=== PATIENT | female | born 1995 | race Caucasian/White ===

== ENCOUNTER 2016-10-14 15:29 | Inpatient (IN) | payer OTHER, MEDICAID ==
[~2016-10-14] VITALS: Ht 144.8 cm; Wt 59.0 kg
[2016-10-14] MEDS ORDERED: OXYTOCIN/NORMAL SALINE 1,000 ML IV SCH (16:23)
[2016-10-14] MEDS ORDERED: LR 1,000 ML IV SCH (16:23)
[2016-10-14] MEDS ORDERED: AMPICILLIN SODIUM 2 GM in NS 100 ML IV ONE (16:30)
[2016-10-14] MEDS ORDERED: NALBUPHINE HCL 10 MG/ML AMP IVP PRN (16:30)
[2016-10-14] MEDS ORDERED: NALBUPHINE HCL 10 MG/ML AMP IM PRN (16:30)
[2016-10-14] MEDS ORDERED: AMPICILLIN SODIUM 2 GM VIAL ONE (16:42)
[2016-10-14 16:52] LABS: BASOPHILS # (AUTO) 0.1 K/uL (0.0-0.2); BASOPHILS % (AUTO) 0.6 % (0.0-2.0); EOSINOPHILS # (AUTO) 0.1 K/uL (0.0-0.4); EOSINOPHILS % (AUTO) 0.6 % (0.0-4.0); HEMATOCRIT 35.4 % (36-48); HEMOGLOBIN 11.7 g/dL (12.0-16.0); LYMPHOCYTES # (AUTO) 1.5 K/uL (1.0-5.5); LYMPHOCYTES % (AUTO) 15.6 % (20.5-51.5); MEAN CORPUSCULAR HEMOGLOBIN 28 pg (27-31); MEAN CORPUSCULAR HGB CONC 33 % (32-36); MEAN CORPUSCULAR VOLUME 84 fL (79.0-98.0); MONOCYTES # (AUTO) 0.8 K/uL (0.0-1.0); MONOCYTES % (AUTO) 8.7 % (1.7-9.3); NEUTROPHILS # (AUTO) 6.8 K/uL (1.8-7.7); NEUTROPHILS % (AUTO) 74.5 % (40.0-70.0); PLATELET COUNT (AUTO) 158 K/uL (130-430); RED CELL DISTRIBUTION WIDTH 13.5 % (9.0-15.0); WHITE BLOOD COUNT (AUTO) 9.3 K/uL (4.8-10.8)
[2016-10-14] MEDS ORDERED: fentaNYL CITRATE/PF 100 MCG/2 ML AMP ONE (17:21)
[2016-10-14] MEDS ORDERED: FENT2mCg/mL-ROPIVA0.2%/NS EPID 150 ML EP ONE (17:21)
[2016-10-14 17:53] VITALS: BP_SYST 124
[2016-10-14] MEDS ORDERED: LR 500 ML IV ONE (18:16)
[2016-10-14] MEDS ORDERED: fentaNYL CITRATE/PF 100 MCG/2 ML AMP EP ONE (18:30)
[2016-10-14] MEDS ORDERED: ePHEDrine sulfate 50 MG/ML VIAL IVP PRN (18:30)
[2016-10-14] MEDS ORDERED: FENT2mCg/mL-ROPIVA0.2%/NS EPID 150 ML EP SCH (18:30)
[2016-10-14] MEDS ORDERED: METHYLERGONOVINE MALEATE 0.2 MG/ML AMP ONE (18:40)
[2016-10-14] MEDS ORDERED: LANOLIN 7 GM OINT. TP PRN (18:45)
[2016-10-14] MEDS ORDERED: METHYLERGONOVINE MALEATE 0.2 MG/ML AMP IM ONE (18:45)
[2016-10-14] MEDS ORDERED: SENNOSIDES/DOCUSATE SODIUM 1 TAB TABLET(SENOKOT-S) PO PRN (18:45)
[2016-10-14] MEDS ORDERED: ANUSOL 1 EA SUPP.RECT (PREPARATION H) RC PRN (18:45)
[2016-10-14] MEDS ORDERED: HYDROcodone/ACETAMIN 5-325 MG TAB (NORCO/ VICODIN) PO PRN (18:45)
[2016-10-14] MEDS ORDERED: METHYLERGONOVINE MALEATE 0.2 MG TABLET PO PRN (18:45)
[2016-10-14] MEDS ORDERED: MEASLES,MUMPS&RUBELLA VACC/PF 12500 UNIT/0.5 ML VIAL SUBQ PRN (18:45)
[2016-10-14] MEDS ORDERED: OXYTOCIN 10 UNIT/ML VIAL IM ONE (18:45)
[2016-10-14] MEDS ORDERED: HYDROCORTISONE 0.5%, 28.35 GM TOPICAL CREAM TP PRN (18:45)
[2016-10-14] MEDS ORDERED: GLYCERIN/WITCH HAZEL (TUCKS PADS) TP PRN (18:45)
[2016-10-14] MEDS ORDERED: DERMOPLAST SPRAY TP PRN (18:45)
[2016-10-14] MEDS ORDERED: RHO(D) IMMUNE GLOBULIN/MALTOSE 1500 UNITS/1.3 ML (WINHRO) IM PRN (18:45)
[2016-10-14] MEDS ORDERED: OXYCODONE/ACETAMINOPHEN 5-325 TABLET PO PRN ×2 (18:45)
[2016-10-14] MEDS ORDERED: DOCUSATE SODIUM 100 MG CAPSULE PO PRN (18:45)
[2016-10-14] MEDS ORDERED: OXYTOCIN 10 UNIT/ML VIAL ONE (18:47)
[2016-10-14] MEDS ORDERED: TEMAZEPAM 15 MG CAPSULE PO PRN (21:00)
[2016-10-15] MEDS: IBUPROFEN 600 MG TABLET PO SCH ×5 (00:06→23:10)
[2016-10-15 06:21] LABS: BASOPHILS % (AUTO) 0.3 % (0.0-2.0); EOSINOPHILS # (AUTO) 0.1 K/uL (0.0-0.4); EOSINOPHILS % (AUTO) 0.5 % (0.0-4.0); HEMATOCRIT 32.7 % (36-48); HEMOGLOBIN 10.7 g/dL (12.0-16.0); LYMPHOCYTES # (AUTO) 2.7 K/uL (1.0-5.5); LYMPHOCYTES % (AUTO) 18.7 % (20.5-51.5); MEAN CORPUSCULAR HEMOGLOBIN 28 pg (27-31); MEAN CORPUSCULAR HGB CONC 33 % (32-36); MEAN CORPUSCULAR VOLUME 84 fL (79.0-98.0); MONOCYTES # (AUTO) 1.6 K/uL (0.0-1.0); NEUTROPHILS # (AUTO) 10.2 K/uL (1.8-7.7); NEUTROPHILS % (AUTO) 69.5 % (40.0-70.0); PLATELET COUNT (AUTO) 153 K/uL (130-430); RED BLOOD CELL COUNT(AUTO) 3.87 MIL/uL (4.2-6.2); RED CELL DISTRIBUTION WIDTH 13.5 % (9.0-15.0); WHITE BLOOD COUNT (AUTO) 14.6 K/uL (4.8-10.8)
[2016-10-15] MEDS: SIMETHICONE 80 MG TAB.CHEW PO PRN ×2 (11:33→17:40)
[2016-10-16] MEDS: IBUPROFEN 600 MG TABLET PO SCH ×2 (06:36→12:11)
[2016-10-16] MEDS ORDERED: DIPH-TET-PERTUS Vaccine 0.5 ML VIAL/Tdap (ADACEL) I.M. PRN (08:00)
[2016-10-16] MEDS ORDERED: LIDOCAINE PF 1% 30ML(POUR BTL) INJ ONE (16:59)
== END 2016-10-16 17:00 | disposition home or self-care (01) | DRG 775 ==
LOC: SPU 15:29 → OBSVTOIN 16:24 → SPU 17:30
PROVIDERS: ADMIT Specialist; ATTEND Specialist
PROC: 10E0XZZ Delivery of Products of Conception, External Approach (ICD-10-PCS; principal; 2016-10-14)
PROC: 3E0R3CZ (ICD-10-PCS; 2016-10-14)
PROC: 00HU33Z Insertion of Infusion Device into Spinal Canal, Percutaneous Approach (ICD-10-PCS; 2016-10-14)
PROC: 3E0134Z Introduction of Serum, Toxoid and Vaccine into Subcutaneous Tissue, Percutaneous Approach (ICD-10-PCS; 2016-10-14)
DX: O80 Encounter for full-term uncomplicated delivery (principal); Z23 Encounter for immunization; Z37.0 Single live birth; Z3A.37 37 weeks gestation of pregnancy
CPT/HCPCS: 36415; 81002-TC; 85025; 86592; 86886; 86900; 86901; 90715; G0378; J0290; J2001; J2210; J2590; J3010; J7120

== ENCOUNTER 2020-02-23 15:57 | Emergency (ER) | payer OTHER, MEDICAID ==
[~2020-02-23] VITALS: Ht 144.8 cm; Wt 41.7 kg
[2020-02-23 16:10] VITALS: BP_SYST 116
[2020-02-23 20:46] LABS: BASOPHILS % (AUTO) 0.1 % (0.0-2.0); EOSINOPHILS % (AUTO) 0.1 % (0.0-4.0); HEMATOCRIT 41.5 % (36-48); HEMOGLOBIN 14.1 g/dL (12.0-16.0); LYMPHOCYTES # (AUTO) 1.3 K/uL (1.0-5.5); LYMPHOCYTES % (AUTO) 6.4 % (20.5-51.5); MEAN CORPUSCULAR HEMOGLOBIN 32 pg (27-31); MEAN CORPUSCULAR HGB CONC 34 % (32-36); MEAN CORPUSCULAR VOLUME 93 fL (79.0-98.0); MONOCYTES # (AUTO) 2.2 K/uL (0.0-1.0); MONOCYTES % (AUTO) 10.6 % (1.7-9.3); NEUTROPHILS % (AUTO) 82.8 % (40.0-70.0); PLATELET COUNT (AUTO) 171 K/uL (130-430); RED BLOOD CELL COUNT(AUTO) 4.48 MIL/uL (4.2-6.2); RED CELL DISTRIBUTION WIDTH 12.3 % (9.0-15.0); WHITE BLOOD COUNT (AUTO) 20.5 K/uL (4.8-10.8)
[2020-02-23 21:19] LABS: BILIRUBIN,URINE NEGATIVE (NEGATIVE); BLOOD, URINE 3+ (NEGATIVE); CLARITY/URINE TURBID (CLEAR); GLUCOSE,URINE NEGATIVE (NEGATIVE); KETONES,URINE TRACE (NEGATIVE); LEUKOCYTE ESTERASE ,URINE TRACE (NEGATIVE); NITRITE, URINE POSITIVE (NEGATIVE); PH,URINE 6.5 (5.0-8.0); PROTEIN URINE 3+ (NEGATIVE)
[2020-02-23 21:21] LABS: COLOR,URINE AMBER (YELLOW)
[2020-02-23 21:29] LABS: BACTERIA,URINE MODERATE /HPF (None Seen); RBC,URINE >100 /HPF (0-3); TRICHOMONAS,URINE None Seen /HPF (None Seen); WBC,URINE 80-100 /HPF (0-3); YEAST,URINE None Seen /HPF (None Seen)
[2020-02-23 23:01] LABS: ALBUMIN 3.1 g/dL (3.4-4.8); CALCIUM 8.6 mg/dL (8.4-11.0); CREATININE 1.08 mg/dL (0.55-1.30); POTASSIUM 4.4 mmol/L (3.5-5.1); TOTAL BILIRUBIN 0.7 mg/dL (0.0-1.0)
[2020-02-23 23:30] VITALS: BP_SYST 122
== END 2020-02-23 23:30 | disposition home or self-care (01) ==
LOC: SED 15:57
DX: N10 Acute pyelonephritis (principal)
CPT/HCPCS: 36415; 76376; 76830-TC; 76857; 80053; 81000-TC; 81025; 84702-TC; 85025; 87086; 99285

== ENCOUNTER 2020-02-26 17:43 | Emergency (ER) | payer OTHER, MEDICAID ==
[~2020-02-26] VITALS: Ht 144.8 cm; Wt 40.4 kg
[2020-02-26 17:58] VITALS: BP_SYST 115
[2020-02-26 20:00] VITALS: BP_SYST 115
== END 2020-02-26 20:00 | disposition home or self-care (01) ==
LOC: SED 17:43
DX: Z02.89 Encounter for other administrative examinations (principal)
CPT/HCPCS: 81002; 81025; 99283

== ENCOUNTER → 2022-01-27 | Emergency (ER) | payer MEDICAID, OTHER | END | disposition left against medical advice (07) | LOC: SED 20:42 | DX: M54.50 Low back pain, unspecified (principal); Z53.21 Procedure and treatment not carried out due to patient leaving prior to being seen by health care provider ==